=== PATIENT | male | born 1990 | race Caucasian/White ===

== ENCOUNTER 2021-10-13 01:17 | Emergency (ER) | payer SELFPAY ==
[~2021-10-13] VITALS: Ht 162.6 cm; Wt 81.0 kg
[2021-10-13 01:26] VITALS: BP 132/99
[2021-10-13] MEDS ORDERED: ACETAMINOPHEN 500MG TABLET PO ONE (01:45)
== END 2021-10-13 02:07 ==
LOC: ER 01:17
DX: M25.562 Pain in left knee (principal); Y35.893A Legal intervention involving other specified means, suspect injured, initial encounter; Y93.89 Activity, other specified; Y92.89 Other specified places as the place of occurrence of the external cause
CPT/HCPCS: 99283